=== PATIENT | male | born 1985 | race African-American/Black ===

== ENCOUNTER 2018-12-15 19:23 | Emergency (ER) | payer SELFPAY ==
[~2018-12-15] VITALS: Ht 177.8 cm; Wt 82.0 kg
[2018-12-15] MEDS ORDERED: SODIUM CHLORIDE 0.9% 1,000 ML IV ONE (21:12)
[2018-12-15] MEDS ORDERED: LEVETIRACETAM 500 MG IV SCH ×2 (21:15)
[2018-12-15] MEDS ORDERED: [UNRECOGNIZED DRUG - OTHER] IV SCH ×2 (21:15)
[2018-12-16] MEDS ORDERED: TETANUS, DIPHTHERIA, PERTUSSIS VAC/PF 0.5ML (>7YR OLD) IM ONE (00:15)
[2018-12-16] MEDS ORDERED: LIDOCAINE HCL 1% 20ML VIAL (Pyxis) INJ INFIL ONE (00:30)
[2018-12-16 00:59] VITALS: BP 130/86
== END 2018-12-16 03:11 | disposition home or self-care (01) ==
LOC: ER 19:23
DX: S01.81XA Laceration without foreign body of other part of head, initial encounter (principal); S01.01XA Laceration without foreign body of scalp, initial encounter; F12.10 Cannabis abuse, uncomplicated; F17.200 Nicotine dependence, unspecified, uncomplicated; W18.39XA Other fall on same level, initial encounter; Y93.89 Activity, other specified; Y92.89 Other specified places as the place of occurrence of the external cause; Y99.8 Other external cause status
CPT/HCPCS: 12013; 70450; 90471; 90715; 99284; A4217; J3490; J7030; Z7610